=== PATIENT | male | born 1980 | race Caucasian/White ===

== ENCOUNTER 2018-06-30 09:34 | Inpatient (IN) | payer OTHER ==
[2018-06-30 10:02] VITALS: BMI 22.9
--- NOTE | 2018-06-30 14:37 | HP ---
COWS - Scale Resting Pulse: 0= [place] 80 or Below Sweatin=Flushed/Facial Moisture Restless Observation: 1= Difficult to Sit Still Pupil Size: 1= Pupils >than Normal Bone or Joint Aches: 2= Severe Diffuse Aches Runny Nose/ Eye Tearin= Runny Nose/Eyes GI Upset > 30mins: 2= Nausea/Diarrhea Tremor Observation: 1= Tremor [place], Not Seen Yawning Observation: 0= None Anxiety or Irritability: 1=Feels Anxious/Irritable Goose Flesh Skin: 0=Smooth Skin COWS Score: 12 CIWA Score - Admission Criteria OASAS Guidelines: Admission for Medically Managed Detox: Requires at least one of the followin. CIWA greater than 12 2. Seizures within the past 24 hours 3. Delirium tremens within the past 24 hours 4. Hallucinations within the past 24 hours 5. Acute intervention needed for co occurring medical disorder 6. Acute intervention needed for co occurring psychiatric disorder 7. Severe withdrawal that cannot be handled at a lower level of care (continued vomiting, continued diarrhea, abnormal vital signs) requiring intravenous medication and/or fluids 8. Patient presents the following: CIWA greater than 12 Admission Criteria Met: Admission criteria met Admission ROS [facility] Chief Complaint: I need to stop using heroin o.r I am going to Allergies/Adverse Reactions: Allergies Allergy/AdvReac Type Severity Reaction Status Date / Time No Known Allergies Allergy Verified 06/30/18 12:46 History of Present Illness: Pt started using heroin 15 yrs ago was drug free x 10 yrs then has now been using heroin for the last 4 yrs. The pt is concerned because he oD 3 times in the last week . He is now seeking detox, Exam Limitations: No Limitations - Ebola screening Have you traveled outside of the country in the last 21 days: No Have you had contact with anyone from an Ebola affected area: No Have you been sick,other than usual withdrawal symptoms: No Do you have a fever: No - Review of Systems Constitutional: Malaise, Night Sweats, Unintentional Wgt. Loss (15 lbs over the past 4 months) EENT: reports: Hearing Loss, Dental Problems (missing teeth) Respiratory: reports: No Symptoms reported Cardiac: reports: Chest Pain (bruised ribs from cpr 2nd to OD) GI: reports: Nausea, Indigestion, Abdominal cramping : reports: No Symptoms Reported Musculoskeletal: reports: Muscle Pain, Joint Stiffness Integumentary: reports: Bruising (sternum mafter sternal rubs and cpr), Erythema Neuro: reports: No Symptoms reported Endocrine: reports: No Symptoms Reported Hematology: reports: Anemia Psychiatric: reports: Anxious Other Systems: Reviewed and Negative Patient History - Patient Medical History Hx Anemia: Yes Hx Asthma: No Hx Chronic Obstructive Pulmonary Disease (COPD): No Hx Cancer: No Hx Cardiac Disorders: No Hx Congestive Heart Failure: No Hx Hypertension: Yes (on medications) Hx Hypercholesterolemia: No Hx Pacemaker: No HX Cerebrovascular Accident: No Hx Seizures: No Hx Dementia: No Hx Diabetes: No Hx Gastrointestinal Disorders: Yes Hx Liver Disease: No Hx Genitourinary Disorders: No Hx Sexually Transmitted Disorders: No Hx Renal Disease (ESRD): No Hx Thyroid Disease: No Hx Human Immunodeficiency Virus (HIV): No (December 2017) Hx Hepatitis C: No Hx Depression: No Hx Suicide Attempt: No Hx Bipolar Disorder: No Hx Schizophrenia: No Other Medical History: OD x 3 in 2018// left foot drop - Patient Surgical History Past Surgical History: Yes Hx Neurologic Surgery: No Hx Cataract Extraction: No Hx Cardiac Surgery: No Hx Lung Surgery: No Hx Breast Surgery: No Hx Breast Biopsy: No Hx Abdominal Surgery: No Hx Appendectomy: No Hx Cholecystectomy: No Hx Genitourinary Surgery: No Hx Orthopedic Surgery: Yes (compartment syndrome left forearm ) Other Surgical History: 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 History Hx Alcohol Use: No Hx Substance Use: Yes Substance Use Type: Heroin Hx Substance Use Treatment: Yes ([facility] ) - Substances Abused Heroin Route: Injection Frequency: Daily Amount used: 10 bags Age of first use: 21 Date of Last Use: 06/30/18 Family Disease History - Family Disease History Family Disease History: [place]: Grandparent (grandfather ), Other: Father (htn , heroin and etoh dep. ) Admission Physical Exam [facility] - Vital Signs Vital Signs: Vital Signs - 24 hr 06/30/18 10:00 Temperature 97.5 F L Pulse Rate 71 Respiratory 20 Rate Blood Pressure 141/76 38 y/o thin m pt aox3 in nad ambulating and cooperative with exam. - Physical General Appearance: Yes: Thin, Irritable, Anxious HEENTM: Yes: EOMI, Hearing grossly Normal, Normocephalic, Normal Voice, WILLY, Other (missing teeth) Respiratory: Yes: Chest Non-Tender, Lungs Clear, Normal Breath Sounds, No Respiratory Distress Neck: Yes: No masses,lesions,Nodules, Supple, Trachea in good position Breast: Yes: Within Normal Limits Cardiology: Yes: Regular Rhythm, Regular Rate, S1, S2 Abdominal: Yes: Soft, Increased Bowel Sounds Genitourinary: Yes: Within Normal Limits Back: Yes: Decreased Range of Motion Musculoskeletal: Yes: Joint Stiffness, Muscle Pain Extremities: Yes: Erythema, Inflammation, Other (rt lower extremityinfected papules - pt started on Bactrim DS by PMD left forearm well healed scaring 2nd to compartment synd,) Neurological: Yes: senior clinical data coordinator II-XII NML intact, Fully Oriented, Alert, Depressed Affect, Other (left foot ndrop) Integumentary: Yes: Erythema (denuded nam over sternum), Other (see extremities ) Lymphatic: Yes: Within Normal Limits - Diagnostic (1) Opioid dependence Current Visit: Yes Status: Chronic (2) Rash Current Visit: Yes Status: Acute (3) Nicotine dependence Current Visit: Yes Status: Acute (4) Depression Current Visit: Yes Status: Chronic Qualifiers: Depression Type: unspecified Qualified Code(s): F32.9 - Major depressive disorder, single episode, unspecified (5) Left foot drop Current Visit: Yes Status: Acute Cleared for Admission [facility] - Detox or Rehab [facility] Level of Care: Medically Managed Detox Regimen/Protocol: Methadone S Breath Alcohol Content Breath Alcohol Content: 0 Urine Drug Screen - Results Drug Screen Negative: No Urine Drug Screen Results: OPI-Opiates, MTD-Methadone, OXY-Oxycodone, FEN- Fentanyl
[2018-06-30] MEDS ORDERED: ACETAMINOPHEN 325 MG TABLET (FP) PO PRN (15:13)
[2018-06-30] MEDS ORDERED: P-EPHED 60MG/TRIPROLIDI 2.5MG TABLET PO PRN (15:13)
[2018-06-30] MEDS ORDERED: MAGNESIUM CITRATE 300 ML BOTTLE PO PRN (15:13)
[2018-06-30] MEDS ORDERED: MAGNESIUM HYDROX 2400MG/30ML ORAL SUSPENSION 30 ML CUP PO PRN (15:13)
[2018-06-30] MEDS ORDERED: MAG HYDROX/AL HYDROX/SIMETH 30 ML UNIT-DOSE CUP PO PRN (15:13)
[2018-06-30] MEDS ORDERED: LOPERAMIDE HCL 2 MG CAPSULE PO PRN (15:13)
[2018-06-30] MEDS ORDERED: guaiFENesin/D-METHORPHAN HB 10 ML UNIT-DOSE CUPS PO PRN (15:13)
[2018-06-30] MEDS ORDERED: MENTHOL/PHENOL 1 EACH UD MM PRN (15:13)
[2018-06-30] MEDS ORDERED: SULFAMETHOXAZOLE/TRIMETHOPRIM 800MG/160MG D.S. TABLET PO SCH (15:30)
[2018-06-30] MEDS ORDERED: METHADONE HCL 10 MG TABLET (FOR DETOX USE ONLY) PO ONE ×2 (15:50→23:00)
[2018-06-30] MEDS: diazePAM 5 MG TABLET PO PRN ×2 (17:34→22:39)
[2018-06-30] MEDS: IBUPROFEN 400 MG TABLET (FP) PO PRN (18:20)
[2018-06-30] MEDS ORDERED: MELATONIN 5 MG TABLETS PO PRN (22:00)
[2018-06-30] MEDS: THIAMINE HCL 100 MG TABLET (FP) PO SCH (22:39)
[2018-06-30] MEDS: SILVER SULFADIAZINE 1% TOP CREAM 50 GM JAR TP SCH (22:41)
[2018-07-01] MEDS ORDERED: METHADONE HCL 10 MG TABLET (FOR DETOX USE ONLY) PO ONE (10:00)
[2018-07-01] MEDS: PRENATAL VITAMINS W/ FOLIC ACID TABLET (FP) PO SCH (10:20)
[2018-07-01] MEDS: SULFAMETHOXAZOLE/TRIMETHOPRIM 800MG/160MG D.S. TABLET PO SCH ×2 (10:21→22:44)
[2018-07-01] MEDS: LISINOPRIL 10 MG TABLET (FP) PO SCH (10:24)
[2018-07-01] MEDS: SILVER SULFADIAZINE 1% TOP CREAM 50 GM JAR TP SCH ×2 (10:25→22:52)
[2018-07-01 11:08] LABS: BASO % 1.2 % (0-2.0); EOS % 5.1 % (0-4.5); HEMATOCRIT 41.5 % (35.4-49); HEMOGLOBIN 13.5 GM/dL (11.7-16.9); MCH 30.4 pg (25.7-33.7); MCHC 32.6 g/dl (32.0-35.9); MEAN CELL VOLUME 93.5 fl (80-96); MEAN PLT VOLUME 8.2 fl (7.5-11.1); MONO % 11.5 % (3.8-10.2); NEUT % 46.2 % (42.8-82.8); PLATELET COUNT 417 K/MM3 (134-434); RBC 4.44 M/mm3 (4.00-5.60); RDW 16.5 % (11.9-15.9); WHITE BLOOD COUNT 6.9 K/mm3 (4.0-10.0)
[2018-07-01 11:36] LABS: ALBUMIN 3.5 g/dl (3.4-5.0); ALK PHOS 120 U/L (45-117); ANION GAP 8 MMOL/L (8-16); BILIRUBIN,TOTAL 0.5 mg/dL (0.2-1); BLOOD UREA NITROGEN 17 mg/dL (7-18); CALCIUM 8.7 mg/dL (8.5-10.1); CHLORIDE 105 mmol/L (98-107); CO2 25 mmol/L (21-32); CREATININE 0.9 mg/dL (0.55-1.3); GLUCOSE,RANDOM 74 mg/dL (74-106); POTASSIUM 5.1 mmol/L (3.5-5.1); SGOT/AST 25 U/L (15-37); SGPT/ALT 29 U/L (13-61); SODIUM 137 mmol/L (136-145); TOT PROT 6.9 g/dl (6.4-8.2)
--- NOTE | 2018-07-01 12:52 | CONSULT ---
[facility] Psychiatric Consult - Data Date of interview: 07/01/18 Admission source: [facility] Identifying data: First admission to [facility] for this 38 y/o male seeking detoxification treatment for heroin dependence. Patient is single without dependents, homeless, unemployed and supported on SSI/SSD benefits. Substance Abuse History: Confirmed by the patient in this session. Details in current [facility] report : Smoking history: Current every day smoker. Have you smoked in the past 12 months: Yes. Aproximately how many cigarettes per day: 20. Cigars Per Day: 0. Hx Chewing Tobacco Use: No. Initiated information on smoking cessation: Yes. 'Breaking Loose' booklet given: 06/30/18. - Substance & Tx. History. Hx Alcohol Use: No. Hx Substance Use: Yes. Substance Use Type : Heroin. Hx Substance Use Treatment: Yes ([facility] ). - Substances Abused. Heroin. Route: Injection. Frequency: Daily. Amount used: 10 bags. Age of first use: 21. Date of Last Use: 06/30/18 Medical History: Anemia, hypertension, hepatitis C, left foot drop, antecedent of compartment syndrome (left forearm ) and a history of dialysis shunts secondary to acute renal and liver failure (2006). Psychiatric History: No reported history of psychiatric hospitalizations. Patient denies having a psychiatric diagnosis. Treated for insomnia with a combination of trazodone 200 mg/hs + remeron 15 mg/hs (last taken two days ago) . Prescribed by a primary care provider. Mr Vargas denies contact with psychiatrists. No psychiatric OPD care. Patient denies history of suicide attempts. Physical/Sexual Abuse/Trauma History: Patient denies. Additional Comment: Urine Drug Screen Results: OPI-Opiates, MTD-Methadone, OXY- Oxycodone, FEN-Fentanyl. Noted. Mental Status Exam - Mental Status Exam Alert and Oriented to: Time, Place, Person Cognitive Function: Good Patient Appearance: Unkempt, Disheveled Mood: Nervous, Withdrawn Affect: Mood Congruent Patient Behavior: Fatigued, Appropriate, Cooperative Speech Pattern: Clear, Appropriate Voice Loudness: Normal Thought Process: Goal Oriented Thought Disorder: Not Present Hallucinations: Denies Suicidal Ideation: Denies Homicidal Ideation: Denies Insight/Judgement: Poor Sleep: Poorly, Difficulty falling asleep Appetite: Good Gait/Station: Other (not observed ; patient in bed for duration of interview) Psychiatric Findings - Problem List ([place] 1, 2,3) (1) Opioid dependence Current Visit: Yes Status: Chronic (2) Nicotine dependence Current Visit: Yes Status: Chronic (3) Substance induced mood disorder Current Visit: Yes Status: Acute (4) Insomnia Current Visit: Yes Status: Chronic - Initial Treatment Plan Initial Treatment Plan: Psychoeducation. Sleep hygiene. Detoxification in progress. NA meetings and supportive + group therapy. Motivational sessions for promotion of sobriety. Measures for relapse prevention : discussed (methadone, naltrexone, suboxone, 12 step doctrine, psychotherapy). Insomnia is addressed with trazodone 150 mg po hs + remeron 15 mg po hs. Side effects/benefits of both drugs are discussed with the patient. Risk of priapism is emphasized. No antecedent of adverse effects, as per self-report. Consent (verbal) given to MD. Liang.
--- NOTE | 2018-07-01 13:18 | PN ---
BHS COWS - Scale Resting Pulse: 0= [place] 80 or Below Sweatin= Chills/Flushing Restless Observation: 1= Difficult to Sit Still Pupil Size: 0= Normal to Room Light Bone or Joint Aches: 2= Severe Diffuse Aches Runny Nose/ Eye Tearin= Runny Nose/Eyes GI Upset > 30mins: 1= Stomach Cramp Tremor Observation of Outstretched Hands: 2= Slight Tremor Visible Yawning Observation: 0= None Anxiety or Irritability: 2=Irritable/Anxious Goose Flesh Skin: 0=Smooth Skin COWS Score: 11 BHS Progress Note (SOAP) Subjective: Weakness, rib pain, interrupted sleep Objective: 07/01/18 13:17 Vital Signs 07/01/18 07/01/18 06:59 09:28 Temperature 97.9 F 98.1 F Pulse Rate 75 79 Respiratory 18 18 Rate Blood Pressure 113/70 105/56 L Laboratory Last Values WBC 6.9 K/mm3 (4.0-10.0) 07/01/18 07:50 RBC 4.44 M/mm3 (4.00-5.60) 07/01/18 07:50 Hgb 13.5 GM/dL (11.7-16.9) 07/01/18 07:50 Hct 41.5 % (35.4-49) 07/01/18 07:50 MCV 93.5 fl (80-96) 07/01/18 07:50 MCH 30.4 pg (25.7-33.7) 07/01/18 07:50 MCHC 32.6 g/dl (32.0-35.9) 07/01/18 07:50 RDW 16.5 % (11.9-15.9) H 07/01/18 07:50 Plt Count 417 K/MM3 (134-434) 07/01/18 07:50 MPV 8.2 fl (7.5-11.1) 07/01/18 07:50 Absolute Neuts (auto) 3.2 K/mm3 (1.5-8.0) 07/01/18 07:50 Neutrophils % 46.2 % (42.8-82.8) 07/01/18 07:50 Lymphocytes % 36.0 % (8-40) 07/01/18 07:50 Monocytes % 11.5 % (3.8-10.2) H 07/01/18 07:50 Eosinophils % 5.1 % (0-4.5) H 07/01/18 07:50 Basophils % 1.2 % (0-2.0) 07/01/18 07:50 Nucleated RBC % 0 % (0-0) 07/01/18 07:50 Sodium 137 mmol/L (136-145) 07/01/18 07:50 Potassium 5.1 mmol/L (3.5-5.1) 07/01/18 07:50 Chloride 105 mmol/L (98-107) 07/01/18 07:50 Carbon Dioxide 25 mmol/L (21-32) 07/01/18 07:50 Anion Gap 8 MMOL/L (8-16) 07/01/18 07:50 BUN 17 mg/dL (7-18) 07/01/18 07:50 Creatinine 0.9 mg/dL (0.55-1.3) 07/01/18 07:50 Creat Clearance w eGFR > 60 (>60) 07/01/18 07:50 Random Glucose 74 mg/dL (74-106) 07/01/18 07:50 Calcium 8.7 mg/dL (8.5-10.1) 07/01/18 07:50 Total Bilirubin 0.5 mg/dL (0.2-1) 07/01/18 07:50 AST 25 U/L (15-37) 07/01/18 07:50 ALT 29 U/L (13-61) 07/01/18 07:50 Alkaline Phosphatase 120 U/L (45-117) H 07/01/18 07:50 Total Protein 6.9 g/dl (6.4-8.2) 07/01/18 07:50 Albumin 3.5 g/dl (3.4-5.0) 07/01/18 07:50 RPR Titer Nonreactive (NONREACTIVE) 07/01/18 07:50 Labs noted Assessment: 07/01/18 13:17 Withdrawal sx Plan: Continue detox
[2018-07-01] MEDS: IBUPROFEN 400 MG TABLET (FP) PO PRN (17:52)
[2018-07-01] MEDS: diazePAM 5 MG TABLET PO PRN ×2 (17:52→22:44)
[2018-07-01] MEDS: THIAMINE HCL 100 MG TABLET (FP) PO SCH (22:43)
[2018-07-01] MEDS: traZODone HCL 50 MG TABLET (FP) PO SCH (22:43)
[2018-07-01] MEDS: MIRTAZAPINE 15 MG TABLET (FP) PO SCH (22:43)
[2018-07-02] MEDS ORDERED: METHADONE HCL 5 MG TABLET (FOR DETOX USE ONLY) PO ONE (10:00)
[2018-07-02] MEDS: LISINOPRIL 10 MG TABLET (FP) PO SCH (10:37)
[2018-07-02] MEDS: PRENATAL VITAMINS W/ FOLIC ACID TABLET (FP) PO SCH (10:37)
[2018-07-02] MEDS: SULFAMETHOXAZOLE/TRIMETHOPRIM 800MG/160MG D.S. TABLET PO SCH ×2 (10:37→22:08)
[2018-07-02] MEDS: SILVER SULFADIAZINE 1% TOP CREAM 50 GM JAR TP SCH ×2 (10:39→22:37)
--- NOTE | 2018-07-02 16:20 | PN ---
BHS COWS - Scale Resting Pulse: 0= [place] 80 or Below Sweatin= Chills/Flushing Restless Observation: 1= Difficult to Sit Still Pupil Size: 1= Pupils >than Normal Bone or Joint Aches: 2= Severe Diffuse Aches Runny Nose/ Eye Tearin= Nasal Congestion GI Upset > 30mins: 1= Stomach Cramp Tremor Observation of Outstretched Hands: 1= Tremor [place], Not Seen Yawning Observation: 1= 1-2x During Session Anxiety or Irritability: 1=Feels Anxious/Irritable Goose Flesh Skin: 0=Smooth Skin COWS Score: 10 BHS Progress Note (SOAP) Subjective: body aches muscle cramp trouble sleep at night tremor sweat Objective: 07/02/18 16:18 Vital Signs Temperature 99.1 F 07/02/18 15:25 Pulse Rate 77 07/02/18 15:25 Respiratory Rate 20 07/02/18 15:25 Blood Pressure 111/56 L 07/02/18 15:25 O2 Sat by Pulse Oximetry (%) Laboratory Last Values WBC 6.9 K/mm3 (4.0-10.0) 07/01/18 07:50 RBC 4.44 M/mm3 (4.00-5.60) 07/01/18 07:50 Hgb 13.5 GM/dL (11.7-16.9) 07/01/18 07:50 Hct 41.5 % (35.4-49) 07/01/18 07:50 MCV 93.5 fl (80-96) 07/01/18 07:50 MCH 30.4 pg (25.7-33.7) 07/01/18 07:50 MCHC 32.6 g/dl (32.0-35.9) 07/01/18 07:50 RDW 16.5 % (11.9-15.9) H 07/01/18 07:50 Plt Count 417 K/MM3 (134-434) 07/01/18 07:50 MPV 8.2 fl (7.5-11.1) 07/01/18 07:50 Absolute Neuts (auto) 3.2 K/mm3 (1.5-8.0) 07/01/18 07:50 Neutrophils % 46.2 % (42.8-82.8) 07/01/18 07:50 Lymphocytes % 36.0 % (8-40) 07/01/18 07:50 Monocytes % 11.5 % (3.8-10.2) H 07/01/18 07:50 Eosinophils % 5.1 % (0-4.5) H 07/01/18 07:50 Basophils % 1.2 % (0-2.0) 07/01/18 07:50 Nucleated RBC % 0 % (0-0) 07/01/18 07:50 Sodium 137 mmol/L (136-145) 07/01/18 07:50 Potassium 5.1 mmol/L (3.5-5.1) 07/01/18 07:50 Chloride 105 mmol/L (98-107) 07/01/18 07:50 Carbon Dioxide 25 mmol/L (21-32) 07/01/18 07:50 Anion Gap 8 MMOL/L (8-16) 07/01/18 07:50 BUN 17 mg/dL (7-18) 07/01/18 07:50 Creatinine 0.9 mg/dL (0.55-1.3) 07/01/18 07:50 Creat Clearance w eGFR > 60 (>60) 07/01/18 07:50 Random Glucose 74 mg/dL (74-106) 07/01/18 07:50 Calcium 8.7 mg/dL (8.5-10.1) 07/01/18 07:50 Total Bilirubin 0.5 mg/dL (0.2-1) 07/01/18 07:50 AST 25 U/L (15-37) 07/01/18 07:50 ALT 29 U/L (13-61) 07/01/18 07:50 Alkaline Phosphatase 120 U/L (45-117) H 07/01/18 07:50 Total Protein 6.9 g/dl (6.4-8.2) 07/01/18 07:50 Albumin 3.5 g/dl (3.4-5.0) 07/01/18 07:50 RPR Titer Nonreactive (NONREACTIVE) 07/01/18 07:50 lab note Assessment: 07/02/18 16:19 withdrawal sx Plan: continue detox
[2018-07-02] MEDS: traZODone HCL 50 MG TABLET (FP) PO SCH (22:08)
[2018-07-02] MEDS: MIRTAZAPINE 15 MG TABLET (FP) PO SCH (22:08)
[2018-07-02] MEDS: THIAMINE HCL 100 MG TABLET (FP) PO SCH (22:08)
[2018-07-03] MEDS ORDERED: METHADONE HCL 5 MG TABLET (FOR DETOX USE ONLY) PO ONE (10:00)
[2018-07-03] MEDS: PRENATAL VITAMINS W/ FOLIC ACID TABLET (FP) PO SCH (10:25)
[2018-07-03] MEDS: LISINOPRIL 10 MG TABLET (FP) PO SCH (10:25)
[2018-07-03] MEDS: SULFAMETHOXAZOLE/TRIMETHOPRIM 800MG/160MG D.S. TABLET PO SCH ×2 (10:25→23:44)
[2018-07-03] MEDS: diazePAM 5 MG TABLET PO PRN (10:28)
--- NOTE | 2018-07-03 10:38 | PN ---
BHS Progress Note (SOAP) Subjective: body aches sweats chills irritable body aches Objective: 07/03/18 10:37 Vital Signs Temperature 97.9 F 07/03/18 09:43 Pulse Rate 64 07/03/18 09:43 Respiratory Rate 18 07/03/18 09:43 Blood Pressure 120/68 07/03/18 09:43 O2 Sat by Pulse Oximetry (%) Laboratory Tests 07/01/18 07/01/18 07/01/18 07:50 07:50 07:50 WBC 6.9 RBC 4.44 Hgb 13.5 Hct 41.5 MCV 93.5 MCH 30.4 MCHC 32.6 RDW 16.5 H Plt Count 417 MPV 8.2 Absolute Neuts (auto) 3.2 Neutrophils % 46.2 Lymphocytes % 36.0 Monocytes % 11.5 H Eosinophils % 5.1 H Basophils % 1.2 Nucleated RBC % 0 Sodium 137 Potassium 5.1 Chloride 105 Carbon Dioxide 25 Anion Gap 8 BUN 17 Creatinine 0.9 Creat Clearance w eGFR > 60 Random Glucose 74 Calcium 8.7 Total Bilirubin 0.5 AST 25 ALT 29 Alkaline Phosphatase 120 H Total Protein 6.9 Albumin 3.5 RPR Titer Nonreactive aaox3 ambulating no acute distress Assessment: 07/03/18 10:39 withdrawal sx Plan: continue detox increase fluids
[2018-07-03] MEDS: SILVER SULFADIAZINE 1% TOP CREAM 50 GM JAR TP SCH ×2 (15:55→23:46)
[2018-07-03] MEDS ORDERED: diazePAM 5 MG TABLET PO ONE (21:06)
[2018-07-03] MEDS: traZODone HCL 50 MG TABLET (FP) PO SCH (23:44)
[2018-07-03] MEDS: THIAMINE HCL 100 MG TABLET (FP) PO SCH (23:48)
[2018-07-03] MEDS: MIRTAZAPINE 15 MG TABLET (FP) PO SCH (23:50)
[2018-07-04] MEDS ORDERED: METHADONE HCL 10 MG TABLET (FOR DETOX USE ONLY) PO ONE (10:00)
[2018-07-04] MEDS: PRENATAL VITAMINS W/ FOLIC ACID TABLET (FP) PO SCH (10:53)
[2018-07-04] MEDS: SULFAMETHOXAZOLE/TRIMETHOPRIM 800MG/160MG D.S. TABLET PO SCH ×2 (10:53→22:18)
[2018-07-04] MEDS: LISINOPRIL 10 MG TABLET (FP) PO SCH (11:06)
[2018-07-04] MEDS: SILVER SULFADIAZINE 1% TOP CREAM 50 GM JAR TP SCH ×2 (13:07→22:19)
--- NOTE | 2018-07-04 13:26 | PN ---
BHS Progress Note (SOAP) Subjective: sweats interrupted sleep Objective: 07/04/18 13:25 Vital Signs Temperature 98.2 F 07/04/18 09:59 Pulse Rate 67 07/04/18 09:59 Respiratory Rate 18 07/04/18 09:59 Blood Pressure 105/57 L 07/04/18 09:59 O2 Sat by Pulse Oximetry (%) aaox3 ambulating no acute distress Assessment: 07/04/18 13:26 withdrawal sx Plan: continue detox increase fluids d/c in am
[2018-07-04] MEDS: THIAMINE HCL 100 MG TABLET (FP) PO SCH (22:18)
[2018-07-04] MEDS: traZODone HCL 50 MG TABLET (FP) PO SCH (22:18)
[2018-07-04] MEDS: MIRTAZAPINE 15 MG TABLET (FP) PO SCH (22:18)
[2018-07-05] MEDS ORDERED: METHADONE HCL 5 MG TABLET (FOR DETOX USE ONLY) PO ONE (06:00)
--- NOTE | 2018-07-05 08:58 | DS ---
[facility] Detox Discharge Summary Admission Date: 06/30/18 Discharge Date: 07/05/18 - History Present History: Opioid Dependence - Physical Exam Results Vital Signs: Vital Signs Temperature 97.7 F 07/05/18 06:00 Pulse Rate 65 07/05/18 06:00 Respiratory Rate 18 07/05/18 06:00 Blood Pressure 121/74 07/05/18 06:00 O2 Sat by Pulse Oximetry (%) - Treatment Hospital Course: Detox Protocol Followed, Detoxed Safely, Responded well, Discharged Condition Good, Rehab Referral Accepted - Medication Discharge Medications: Ambulatory Orders Cholecalciferol (Vitamin D3) [D3-2000] 2,000 units PO DAILY 06/30/18 Gabapentin 600 mg PO Q8H 06/30/18 Lisinopril 10 mg PO DAILY 06/30/18 Metoprolol Succinate 50 mg PO DAILY 06/30/18 Mirtazapine [Remeron Soltab -] 15 mg PO HS 06/30/18 Multivitamins [Multivit ([facility] Formulary)] 1 tablet PO DAILY 06/30/18 Sulfamethoxazole/Trimethoprim [Bactrim Ds Tablet] 1 tablet PO Q12H 06/30/18 traZODone HCL [Trazodone HCl] 200 mg PO HS 06/30/18 - Diagnosis (1) Hypertension Current Visit: Yes Status: Chronic Qualifiers: Hypertension type: essential hypertension Qualified Code(s): I10 - Essential (primary) hypertension (2) Left foot drop Current Visit: Yes Status: Acute (3) Rash Current Visit: Yes Status: Acute (4) Substance induced mood disorder Current Visit: Yes Status: Acute (5) Depression Current Visit: Yes Status: Chronic Qualifiers: Depression Type: unspecified Qualified Code(s): F32.9 - Major depressive disorder, single episode, unspecified (6) Insomnia Current Visit: Yes Status: Chronic (7) Nicotine dependence Current Visit: Yes Status: Chronic Qualifiers: Nicotine product type: cigarettes Substance use status: uncomplicated Qualified Code(s): F17.210 - Nicotine dependence, cigarettes, uncomplicated (8) Opioid dependence Current Visit: Yes Status: Chronic Qualifiers: Substance use status: uncomplicated Qualified Code(s): F11.20 - Opioid dependence, uncomplicated - AMA Did Patient Leave Against Medical Advice: No (referred to outpatient rehab)
[2018-07-05 09:52] VITALS: BP 120/62; PULSE 69; TEMP 97.9
== END 2018-07-05 09:15 | disposition home or self-care (01) | DRG 897 ==
LOC: YASAS 09:34 → Y6N 14:46
PROC: HZ2ZZZZ Detoxification Services for Substance Abuse Treatment (ICD-10-PCS; principal; 2018-06-30)
DX: F11.20 Opioid dependence, uncomplicated (principal); F17.210 Nicotine dependence, cigarettes, uncomplicated; F19.24 Other psychoactive substance dependence with psychoactive substance-induced mood disorder; F32.9 Major depressive disorder, single episode, unspecified; G47.00 Insomnia, unspecified; I10 Essential (primary) hypertension; M21.372 Foot drop, left foot; R21 Rash and other nonspecific skin eruption; Z59.0 Homelessness
CPT/HCPCS: 36415; 80053; 85025; 86593

== ENCOUNTER 2022-02-09 17:02 | Inpatient (IN) | payer OTHER ==
[2022-02-09 17:52] VITALS: BMI 22.9
[2022-02-09] MEDS ORDERED: LOPERAMIDE HCL 2 MG CAPSULE PO PRN (19:31)
[2022-02-09] MEDS ORDERED: guaiFENesin 200 MG/10 ML 10 ML UNIT-DOSE CUPS PO PRN (19:31)
[2022-02-09] MEDS ORDERED: IBUPROFEN 400 MG TABLET (FP) PO PRN (19:31)
[2022-02-09] MEDS ORDERED: P-EPHED 60MG/TRIPROLIDI 2.5MG TABLET PO PRN (19:31)
[2022-02-09] MEDS ORDERED: NICOTINE POLACRILEX 2 MG GUM BC PRN (19:31)
[2022-02-09] MEDS ORDERED: MAGNESIUM CITRATE 300 ML BOTTLE PO PRN (19:31)
[2022-02-09] MEDS ORDERED: ACETAMINOPHEN 325 MG TABLET (FP) PO PRN (19:31)
[2022-02-09] MEDS ORDERED: MAGNESIUM HYDROX 2400MG/30ML ORAL SUSPENSION 30 ML CUP PO PRN (19:31)
[2022-02-09] MEDS: MELATONIN 5 MG TABLETS PO SCH (23:41)
[2022-02-09] MEDS: BACITRACIN 15 GM TUBE TOPICAL OINTMENT TP SCH (23:49)
[2022-02-09] MEDS: THIAMINE HCL 100 MG TABLET (FP) PO SCH (23:49)
[2022-02-10] MEDS: BACITRACIN 15 GM TUBE TOPICAL OINTMENT TP SCH ×2 (11:01→21:38)
[2022-02-10] MEDS: PRENATAL VITAMINS W/ FOLIC ACID TABLET (FP) PO SCH (11:01)
[2022-02-10] MEDS ORDERED: BUPRENORPHINE/NALOXONE 4 MG/1 MG FILM PACKET SL ONE (11:33)
[2022-02-10 11:46] LABS: PH,URINE 6.5 (5.0-8.0); URINE APPEARANCE CLEAR; URINE BILIRUBIN NEGATIVE (NEGATIVE); URINE COLOR YELLOW; URINE GLUCOSE (UA) NEGATIVE (NEGATIVE); URINE KETONE NEGATIVE (NEGATIVE); URINE LEUK ESTERASE NEGATIVE (NEGATIVE); URINE NITRITE NEGATIVE (NEGATIVE); URINE PROTEIN NEGATIVE (NEGATIVE)
[2022-02-10] MEDS: MELATONIN 5 MG TABLETS PO SCH (21:36)
[2022-02-10] MEDS: THIAMINE HCL 100 MG TABLET (FP) PO SCH (21:36)
[2022-02-10] MEDS: BUPRENORPHINE/NALOXONE 4 MG/1 MG FILM PACKET SL SCH (21:36)
[2022-02-10] MEDS ORDERED: BUPRENORPHINE/NALOXONE 8 MG/2 MG FILM PACKET SL SCH (22:00)
[2022-02-11] MEDS: MAG HYDROX/AL HYDROX/SIMETH 30 ML UNIT-DOSE CUP PO PRN (02:47)
[2022-02-11] MEDS: BUPRENORPHINE/NALOXONE 4 MG/1 MG FILM PACKET SL SCH ×2 (10:16→21:28)
[2022-02-11] MEDS: BACITRACIN 15 GM TUBE TOPICAL OINTMENT TP SCH ×2 (10:16→21:27)
[2022-02-11] MEDS: PRENATAL VITAMINS W/ FOLIC ACID TABLET (FP) PO SCH (10:16)
[2022-02-11 13:42] LABS: HEMATOCRIT 41.5 % (35.4-49); HEMOGLOBIN 13.7 GM/dL (11.7-16.9); MCH 29.6 pg (25.7-33.7); MCHC 32.9 g/dl (32.0-35.9); MEAN CELL VOLUME 89.7 fl (80-96); MEAN PLT VOLUME 9.2 fl (7.5-11.1); PLATELET COUNT 362 10^3/uL (134-434); RBC 4.62 M/mm3 (4.00-5.60); RDW 14.7 % (11.9-15.9); WHITE BLOOD COUNT 5.3 K/mm3 (4.0-10.0)
[2022-02-11 14:03] LABS: CALCIUM 9.1 mg/dL (8.5-10.1)
[2022-02-11 14:04] LABS: ALBUMIN 3.5 g/dl (3.4-5.0); BLOOD UREA NITROGEN 17.7 mg/dL (7-18)
[2022-02-11 14:07] LABS: CREATININE 0.8 mg/dL (0.55-1.3)
[2022-02-11 14:08] LABS: BILIRUBIN,TOTAL 0.5 mg/dL (0.2-1); TOT PROT 7.2 g/dl (6.4-8.2)
[2022-02-11] MEDS: MELATONIN 5 MG TABLETS PO SCH (21:27)
[2022-02-11] MEDS: THIAMINE HCL 100 MG TABLET (FP) PO SCH (21:28)
[2022-02-12] MEDS: PRENATAL VITAMINS W/ FOLIC ACID TABLET (FP) PO SCH (11:01)
[2022-02-12] MEDS: BACITRACIN 15 GM TUBE TOPICAL OINTMENT TP SCH ×2 (11:01→21:28)
[2022-02-12] MEDS: BUPRENORPHINE/NALOXONE 4 MG/1 MG FILM PACKET SL SCH (12:14)
[2022-02-12] MEDS ORDERED: NICOTINE POLACRILEX 2 MG GUM BC PRN (13:09)
[2022-02-12] MEDS ORDERED: CALAMINE 8% TOPICAL LOTION 177 ML BOTTLE TP PRN (14:00)
[2022-02-12] MEDS: BUPRENORPHINE/NALOXONE 8 MG/2 MG FILM PACKET SL SCH ×2 (14:19→21:28)
[2022-02-12] MEDS: NICOTINE 14 MG/24 HOURS TOPICAL PATCH TD SCH (14:20)
[2022-02-12] MEDS: predniSONE 5 MG TABLET (UD) PO SCH (15:07)
[2022-02-12] MEDS ORDERED: predniSONE 5 MG TABLET (UD) PO ONE (17:01)
[2022-02-12] MEDS ORDERED: HYDROCORTISONE 0.5% TOPICAL CREAM 30 GM TUBE TP PRN (17:02)
[2022-02-12] MEDS: THIAMINE HCL 100 MG TABLET (FP) PO SCH (21:27)
[2022-02-12] MEDS: MELATONIN 5 MG TABLETS PO SCH (21:27)
[2022-02-13] MEDS: BACITRACIN 15 GM TUBE TOPICAL OINTMENT TP SCH ×2 (09:12→21:12)
[2022-02-13] MEDS: predniSONE 5 MG TABLET (UD) PO SCH (09:12)
[2022-02-13] MEDS: PRENATAL VITAMINS W/ FOLIC ACID TABLET (FP) PO SCH (09:13)
[2022-02-13] MEDS: NICOTINE 14 MG/24 HOURS TOPICAL PATCH TD SCH (09:13)
[2022-02-13] MEDS: BUPRENORPHINE/NALOXONE 8 MG/2 MG FILM PACKET SL SCH ×2 (09:14→21:10)
[2022-02-13] MEDS: NICOTINE 10 MG CARTRIDGE (INHALER) IH PRN ×2 (09:30→17:17)
[2022-02-13] MEDS: THIAMINE HCL 100 MG TABLET (FP) PO SCH (21:10)
[2022-02-13] MEDS: MELATONIN 5 MG TABLETS PO SCH (21:10)
[2022-02-13] MEDS: MAG HYDROX/AL HYDROX/SIMETH 30 ML UNIT-DOSE CUP PO PRN (23:45)
[2022-02-14] MEDS: NICOTINE 10 MG CARTRIDGE (INHALER) IH PRN ×3 (08:22→21:03)
[2022-02-14] MEDS: BUPRENORPHINE/NALOXONE 8 MG/2 MG FILM PACKET SL SCH ×2 (10:26→21:00)
[2022-02-14] MEDS: PRENATAL VITAMINS W/ FOLIC ACID TABLET (FP) PO SCH (10:26)
[2022-02-14] MEDS: predniSONE 5 MG TABLET (UD) PO SCH (10:26)
[2022-02-14] MEDS: NICOTINE 21 MG/24 HOURS TOPICAL PATCH TD SCH (10:26)
[2022-02-14] MEDS: BACITRACIN 15 GM TUBE TOPICAL OINTMENT TP SCH ×2 (10:45→22:20)
[2022-02-14] MEDS: THIAMINE HCL 100 MG TABLET (FP) PO SCH (20:59)
[2022-02-14] MEDS: MELATONIN 5 MG TABLETS PO SCH (20:59)
[2022-02-15] MEDS: NICOTINE 10 MG CARTRIDGE (INHALER) IH PRN ×3 (07:53→21:09)
[2022-02-15] MEDS: PRENATAL VITAMINS W/ FOLIC ACID TABLET (FP) PO SCH (11:10)
[2022-02-15] MEDS: BUPRENORPHINE/NALOXONE 8 MG/2 MG FILM PACKET SL SCH ×2 (11:10→21:09)
[2022-02-15] MEDS: predniSONE 5 MG TABLET (UD) PO SCH (11:10)
[2022-02-15] MEDS: NICOTINE 21 MG/24 HOURS TOPICAL PATCH TD SCH (11:11)
[2022-02-15] MEDS: BACITRACIN 15 GM TUBE TOPICAL OINTMENT TP SCH ×2 (11:16→22:12)
[2022-02-15] MEDS: MELATONIN 5 MG TABLETS PO SCH (21:08)
[2022-02-15] MEDS: THIAMINE HCL 100 MG TABLET (FP) PO SCH (21:08)
[2022-02-15] MEDS: MAG HYDROX/AL HYDROX/SIMETH 30 ML UNIT-DOSE CUP PO PRN (22:12)
[2022-02-16] MEDS: NICOTINE 10 MG CARTRIDGE (INHALER) IH PRN ×4 (06:06→21:09)
[2022-02-16] MEDS: NICOTINE 21 MG/24 HOURS TOPICAL PATCH TD SCH (09:39)
[2022-02-16] MEDS: BUPRENORPHINE/NALOXONE 8 MG/2 MG FILM PACKET SL SCH ×2 (09:40→21:08)
[2022-02-16] MEDS: PRENATAL VITAMINS W/ FOLIC ACID TABLET (FP) PO SCH (09:40)
[2022-02-16] MEDS: predniSONE 5 MG TABLET (UD) PO SCH (09:40)
[2022-02-16] MEDS: BACITRACIN 0.9 GM PACKET TP SCH ×2 (10:46→21:08)
[2022-02-16] MEDS ORDERED: diphenhydrAMINE HCL 25 MG CAPSULE (FP) PO ONE (12:41)
[2022-02-16] MEDS: COLLOIDAL OATMEAL 1 BAR EACH TP PRN (14:11)
[2022-02-16] MEDS: MAG HYDROX/AL HYDROX/SIMETH 30 ML UNIT-DOSE CUP PO PRN (21:06)
[2022-02-16] MEDS: THIAMINE HCL 100 MG TABLET (FP) PO SCH (21:07)
[2022-02-16] MEDS: MELATONIN 5 MG TABLETS PO SCH (21:07)
[2022-02-16] MEDS ORDERED: hydrOXYzine PAMOATE 50 MG CAPSULE (FP) PO ONE (22:00)
[2022-02-17] MEDS: NICOTINE 10 MG CARTRIDGE (INHALER) IH PRN ×4 (06:17→16:50)
[2022-02-17] MEDS: PRENATAL VITAMINS W/ FOLIC ACID TABLET (FP) PO SCH (09:46)
[2022-02-17] MEDS: BUPRENORPHINE/NALOXONE 8 MG/2 MG FILM PACKET SL SCH ×2 (09:46→21:26)
[2022-02-17] MEDS: predniSONE 5 MG TABLET (UD) PO SCH (09:46)
[2022-02-17] MEDS: NICOTINE 21 MG/24 HOURS TOPICAL PATCH TD SCH (09:47)
[2022-02-17] MEDS: BACITRACIN 0.9 GM PACKET TP SCH ×2 (09:48→21:27)
[2022-02-17] MEDS: MAG HYDROX/AL HYDROX/SIMETH 30 ML UNIT-DOSE CUP PO PRN ×2 (16:47→22:15)
[2022-02-17] MEDS: MELATONIN 5 MG TABLETS PO SCH (21:25)
[2022-02-17] MEDS: THIAMINE HCL 100 MG TABLET (FP) PO SCH (21:26)
[2022-02-18] MEDS: NICOTINE 10 MG CARTRIDGE (INHALER) IH PRN ×4 (06:26→22:00)
[2022-02-18] MEDS: MAG HYDROX/AL HYDROX/SIMETH 30 ML UNIT-DOSE CUP PO PRN ×2 (08:28→15:53)
[2022-02-18] MEDS: BUPRENORPHINE/NALOXONE 8 MG/2 MG FILM PACKET SL SCH ×2 (10:41→21:57)
[2022-02-18] MEDS: PRENATAL VITAMINS W/ FOLIC ACID TABLET (FP) PO SCH (10:41)
[2022-02-18] MEDS: predniSONE 5 MG TABLET (UD) PO SCH (10:41)
[2022-02-18] MEDS: BACITRACIN 0.9 GM PACKET TP SCH ×2 (10:41→21:58)
[2022-02-18] MEDS: NICOTINE 21 MG/24 HOURS TOPICAL PATCH TD SCH (10:42)
[2022-02-18] MEDS: FAMOTIDINE 20 MG TABLET PO SCH (21:57)
[2022-02-18] MEDS: THIAMINE HCL 100 MG TABLET (FP) PO SCH (21:57)
[2022-02-18] MEDS: MELATONIN 5 MG TABLETS PO SCH (21:57)
[2022-02-19] MEDS: MAG HYDROX/AL HYDROX/SIMETH 30 ML UNIT-DOSE CUP PO PRN ×3 (01:08→23:36)
[2022-02-19] MEDS: NICOTINE 10 MG CARTRIDGE (INHALER) IH PRN ×2 (07:03→15:38)
[2022-02-19] MEDS: FAMOTIDINE 20 MG TABLET PO SCH (09:46)
[2022-02-19] MEDS: PRENATAL VITAMINS W/ FOLIC ACID TABLET (FP) PO SCH (09:46)
[2022-02-19] MEDS: BACITRACIN 0.9 GM PACKET TP SCH ×2 (09:47→21:26)
[2022-02-19] MEDS: NICOTINE 21 MG/24 HOURS TOPICAL PATCH TD SCH (09:47)
[2022-02-19] MEDS: predniSONE 5 MG TABLET (UD) PO SCH (09:47)
[2022-02-19] MEDS: BUPRENORPHINE/NALOXONE 8 MG/2 MG FILM PACKET SL SCH ×2 (09:47→21:26)
[2022-02-19] MEDS ORDERED: TRIAMCINOLONE ACET 0.5% OINT 15 GM TUBE TP PRN (09:53)
[2022-02-19] MEDS: PANTOPRAZOLE 20 MG TABLET PO SCH ×2 (11:14→21:26)
[2022-02-19] MEDS ORDERED: AMMONIUM LACTATE 12% LOTION 225 GM BOTTLE TP PRN (19:22)
[2022-02-19] MEDS: MELATONIN 5 MG TABLETS PO SCH (21:26)
[2022-02-19] MEDS: THIAMINE HCL 100 MG TABLET (FP) PO SCH (21:26)
[2022-02-20] MEDS: NICOTINE 10 MG CARTRIDGE (INHALER) IH PRN ×2 (06:18→21:40)
[2022-02-20] MEDS: PANTOPRAZOLE 20 MG TABLET PO SCH ×2 (09:13→21:35)
[2022-02-20] MEDS: NICOTINE 21 MG/24 HOURS TOPICAL PATCH TD SCH (09:14)
[2022-02-20] MEDS: PRENATAL VITAMINS W/ FOLIC ACID TABLET (FP) PO SCH (09:14)
[2022-02-20] MEDS: BACITRACIN 0.9 GM PACKET TP SCH ×2 (09:14→21:57)
[2022-02-20] MEDS: BUPRENORPHINE/NALOXONE 8 MG/2 MG FILM PACKET SL SCH ×2 (09:14→21:35)
[2022-02-20] MEDS: MELATONIN 5 MG TABLETS PO SCH (21:34)
[2022-02-20] MEDS: THIAMINE HCL 100 MG TABLET (FP) PO SCH (21:35)
[2022-02-21] MEDS: BACITRACIN 0.9 GM PACKET TP SCH ×2 (10:47→21:35)
[2022-02-21] MEDS: NICOTINE 21 MG/24 HOURS TOPICAL PATCH TD SCH (10:47)
[2022-02-21] MEDS: PRENATAL VITAMINS W/ FOLIC ACID TABLET (FP) PO SCH (10:47)
[2022-02-21] MEDS: BUPRENORPHINE/NALOXONE 8 MG/2 MG FILM PACKET SL SCH ×2 (10:47→21:35)
[2022-02-21] MEDS: PANTOPRAZOLE 20 MG TABLET PO SCH ×2 (10:48→21:35)
[2022-02-21] MEDS: THIAMINE HCL 100 MG TABLET (FP) PO SCH (21:35)
[2022-02-21] MEDS: MELATONIN 5 MG TABLETS PO SCH (21:35)
[2022-02-21] MEDS: NICOTINE 10 MG CARTRIDGE (INHALER) IH PRN (21:36)
[2022-02-22] MEDS: NICOTINE 21 MG/24 HOURS TOPICAL PATCH TD SCH (09:37)
[2022-02-22] MEDS: BACITRACIN 0.9 GM PACKET TP SCH ×2 (09:37→22:54)
[2022-02-22] MEDS: PRENATAL VITAMINS W/ FOLIC ACID TABLET (FP) PO SCH (09:38)
[2022-02-22] MEDS: BUPRENORPHINE/NALOXONE 8 MG/2 MG FILM PACKET SL SCH ×2 (09:38→21:29)
[2022-02-22] MEDS: NICOTINE 10 MG CARTRIDGE (INHALER) IH PRN (09:39)
[2022-02-22] MEDS: PANTOPRAZOLE 20 MG TABLET PO SCH ×2 (10:47→21:28)
[2022-02-22] MEDS: THIAMINE HCL 100 MG TABLET (FP) PO SCH (21:28)
[2022-02-22] MEDS: MELATONIN 5 MG TABLETS PO SCH (21:29)
[2022-02-23] MEDS ORDERED: PERMETHRIN 5% TOPICAL CREAM 60 GM TUBE TP ONE (08:54)
[2022-02-23] MEDS: PANTOPRAZOLE 20 MG TABLET PO SCH ×2 (09:42→21:51)
[2022-02-23] MEDS: PRENATAL VITAMINS W/ FOLIC ACID TABLET (FP) PO SCH (09:42)
[2022-02-23] MEDS: NICOTINE 21 MG/24 HOURS TOPICAL PATCH TD SCH (09:43)
[2022-02-23] MEDS: BUPRENORPHINE/NALOXONE 8 MG/2 MG FILM PACKET SL SCH ×2 (09:44→21:51)
[2022-02-23] MEDS: BACITRACIN 0.9 GM PACKET TP SCH ×2 (11:02→21:51)
[2022-02-23] MEDS: NICOTINE 10 MG CARTRIDGE (INHALER) IH PRN ×2 (12:58→21:52)
[2022-02-23] MEDS: COLLOIDAL OATMEAL 1 BAR EACH TP PRN (14:28)
[2022-02-23] MEDS: MELATONIN 5 MG TABLETS PO SCH (21:51)
[2022-02-23] MEDS: THIAMINE HCL 100 MG TABLET (FP) PO SCH (21:51)
[2022-02-24] MEDS: BACITRACIN 0.9 GM PACKET TP SCH ×2 (11:04→21:48)
[2022-02-24] MEDS: BUPRENORPHINE/NALOXONE 8 MG/2 MG FILM PACKET SL SCH ×2 (11:04→21:34)
[2022-02-24] MEDS: PRENATAL VITAMINS W/ FOLIC ACID TABLET (FP) PO SCH (11:04)
[2022-02-24] MEDS: PANTOPRAZOLE 20 MG TABLET PO SCH ×2 (11:05→21:34)
[2022-02-24] MEDS: NICOTINE 10 MG CARTRIDGE (INHALER) IH PRN (11:05)
[2022-02-24] MEDS: NICOTINE 21 MG/24 HOURS TOPICAL PATCH TD SCH (11:05)
[2022-02-24] MEDS: THIAMINE HCL 100 MG TABLET (FP) PO SCH (21:34)
[2022-02-24] MEDS: MELATONIN 5 MG TABLETS PO SCH (21:34)
[2022-02-25 07:00] VITALS: BP 143/83; PULSE 71; RESP 18; TEMP 97.3
[2022-02-25] MEDS: BACITRACIN 0.9 GM PACKET TP SCH (09:37)
[2022-02-25] MEDS: PANTOPRAZOLE 20 MG TABLET PO SCH (09:37)
[2022-02-25] MEDS: BUPRENORPHINE/NALOXONE 8 MG/2 MG FILM PACKET SL SCH (09:37)
[2022-02-25] MEDS: PRENATAL VITAMINS W/ FOLIC ACID TABLET (FP) PO SCH (09:37)
[2022-02-25] MEDS: NICOTINE 21 MG/24 HOURS TOPICAL PATCH TD SCH (10:13)
== END 2022-02-25 10:14 | disposition home or self-care (01) | DRG 895 ==
LOC: YASAS 17:02 → Y3W 23:16
PROVIDERS: ADMIT Allergy & Immunology; ATTEND Family Medicine
PROC: HZ42ZZZ Group Counseling for Substance Abuse Treatment, Cognitive-Behavioral (ICD-10-PCS; principal; 2022-02-09)
DX: F14.20 Cocaine dependence, uncomplicated (principal); F11.20 Opioid dependence, uncomplicated; F17.210 Nicotine dependence, cigarettes, uncomplicated; F19.24 Other psychoactive substance dependence with psychoactive substance-induced mood disorder; R21 Rash and other nonspecific skin eruption; R20.3 Hyperesthesia; K21.9 Gastro-esophageal reflux disease without esophagitis; Z86.19 Personal history of other infectious and parasitic diseases; Z56.0 Unemployment, unspecified; Z59.02 Unsheltered homelessness
CPT/HCPCS: 36415; 80053; 81003; 85027; 86780; C9803-CS; U0003; U0005